=== PATIENT | male | born 2000 | race Caucasian/White ===

== ENCOUNTER 2018-03-19 09:57 | Outpatient (CLI) | payer BC, OTHER ==
--- NOTE | 2018-03-19 11:11 | ULT ---
TESTICULAR ULTRASOUND: History: Palpable lump on right. FINDINGS: Real-time imaging of the right and left testes were performed. The right testicle measures 5 and the left testicle 5.1 cm in size. No testicular mass is identified. On the right side there is a large right epididymal cyst measuring 1.9 cm. The left epididymis is nor mal. Doppler evaluation with spectral analysis: Normal flow is shown to both testes. IMPRESSION: Large 1.9 cm right epididymal cyst. POS: [facility]
== END 2018-03-19 09:58 | disposition home or self-care (01) ==
LOC: SCSULT 09:57
PROVIDERS: ATTEND Family Medicine
DX: N50.9 Disorder of male genital organs, unspecified (principal); N50.3 Cyst of epididymis
CPT/HCPCS: 76870; 93976